=== PATIENT | male | born 1965 | race Caucasian/White ===

== ENCOUNTER 2016-07-18 12:04 | Inpatient (IN) | payer BC ==
[2016-07-18 12:46] VITALS: BMI 26.9
--- NOTE | 2016-07-18 14:40 | HP ---
CIWA Score - CIWA Score Nausea/Vomitin Muscle Tremors: 3 Anxiety: 3 Agitation: 3 Paroxysmal Sweats: 2 Orientation: 0-Oriented Tacttile Disturbances: 2-Mild Itch/Numbness/Burn Auditory Disturbances: 2-Mild Harshness/Frighten Visual Disturbances: 2-Mild Sensitivity Headache: 2-Mild CIWA-Ar Total Score: 22 Admission ROS [facility] - HPI Chief Complaint: for inpatient detox from alcohol Allergies/Adverse Reactions: Allergies Allergy/AdvReac Type Severity Reaction Status Date / Time No Known Allergies Allergy Verified 07/18/16 14:22 History of Present Illness: this 51 years old male with alcohol dependence,withdrawal symptom,last detox 2012 [facility] type 2 dm hypertension nicotine dependence no significant period of sobriety hypothyroidism Exam Limitations: No Limitations - Ebola screening Have you traveled outside of the country in the last 21 days: No Have you had contact with anyone from an Ebola affected area: No Have you been sick,other than usual withdrawal symptoms: No - Review of Systems Constitutional: Loss of Appetite, Malaise, Night Sweats, Changes in sleep, Weakness EENT: reports: Nose Congestion Respiratory: reports: No Symptoms reported Cardiac: reports: Palpitations GI: reports: Nausea, Vomiting, Abdominal cramping : reports: No Symptoms Reported Musculoskeletal: reports: Back Pain, Muscle Pain Integumentary: reports: Dryness Neuro: reports: Tremors Endocrine: reports: No Symptoms Reported Hematology: reports: No Symptoms Reported Psychiatric: reports: No Sypmtoms Reported Other Systems: Reviewed and Negative Patient History - Patient Medical History Hx Anemia: No Hx Asthma: No Hx Chronic Obstructive Pulmonary Disease (COPD): No Hx Cancer: No Hx Cardiac Disorders: No Hx Congestive Heart Failure: No Hx Hypertension: Yes (no medication) Hx Hypercholesterolemia: Yes (on med) Hx Pacemaker: No HX Cerebrovascular Accident: No Hx Seizures: No Hx Dementia: No Hx Diabetes: Yes (on med) Hx Gastrointestinal Disorders: No Hx Liver Disease: No Hx Genitourinary Disorders: No Hx Sexually Transmitted Disorders: No Hx Renal Disease (ESRD): No Hx Thyroid Disease: Yes (hypothyroidism) Hx Human Immunodeficiency Virus (HIV): (never been tested) Hx Hepatitis C: No Hx Depression: Yes (insomnia) Hx Suicide Attempt: No Hx Bipolar Disorder: No Hx Schizophrenia: No Other Medical History: no suicidal,no homicidal - Patient Surgical History Hx Cholecystectomy: Yes (lap cholecystectomy in 2012) Other Surgical History: no suicidal,no homicidal - PPD History Previous Implant?: Yes PPD to be Administered?: No - Smoking Cessation Smoking history: Current every day smoker Have you smoked in the past 12 months: Yes Aproximately how many cigarettes per day: 2 Hx Chewing Tobacco Use: No Initiated information on smoking cessation: Yes 'Breaking Loose' booklet given: 07/18/16 - Substance & Tx. History Hx Alcohol Use: Yes Hx Substance Use: No Substance Use Type: Alcohol Hx Substance Use Treatment: Yes ([facility] in 2012) - Substances Abused Alcohol Route: Oral Frequency: Daily Amount used: 1 pint shanti or vodka/ 15 beers Age of first use: 18 Date of Last Use: 07/17/16 Family Disease History - Family Disease History Family Disease History: Other: Father (alcohol), Mother (alcohol), Brother ( alcohol) Admission Physical Exam [facility] - Vital Signs Vital Signs: Vital Signs - 24 hr 07/18/16 12:44 Temperature 97.6 F Pulse Rate 122 H Respiratory 18 Rate Blood Pressure 127/81 - Physical General Appearance: Yes: Moderate Distress, Tremorous, Irritable, Sweating, Anxious HEENTM: Yes: Normal ENT Inspection, SHANELLE, Pharynx Normal Respiratory: Yes: Lungs Clear, Normal Breath Sounds, No Respiratory Distress Neck: Yes: Within Normal Limits Breast: Yes: Within Normal Limits Cardiology: Yes: Tachycardia Abdominal: Yes: Non Tender, Flat, Soft, Increased Bowel Sounds Genitourinary: Yes: Within Normal Limits Back: Yes: Normal Inspection, Muscle Spasm Musculoskeletal: Yes: Back pain, Joint Stiffness, Muscle Pain Extremities: Yes: Tremors Neurological: Yes: slide maker II-XII NML intact, Fully Oriented, Alert, Motor Strength 5/5 Integumentary: Yes: Dry Lymphatic: Yes: Within Normal Limits - Diagnostic (1) Alcohol dependence with uncomplicated withdrawal Current Visit: Yes Status: Acute (2) DM2 (diabetes mellitus, type 2) Current Visit: Yes Status: Chronic (3) Hypercholesterolemia Current Visit: Yes Status: Chronic (4) Hypothyroidism Current Visit: Yes Status: Chronic (5) Positive PPD Current Visit: Yes Status: Chronic (6) Nicotine dependence Current Visit: Yes Status: Acute (7) Anxiety and depression Current Visit: Yes Status: Acute Cleared for Admission [facility] - Detox or Rehab [facility] Level of Care: Medically Managed Detox Regimen/Protocol: Librium [facility] Breath Alcohol Content Breath Alcohol Content: 0 Urine Drug Screen - Results Drug Screen Negative: Yes
[2016-07-18] MEDS ORDERED: P-EPHED 60MG/TRIPROLIDI 2.5MG TABLET PO PRN (15:01)
[2016-07-18] MEDS ORDERED: chlordiazePOXIDE HCL 25 MG CAPSULE PO PRN (15:01)
[2016-07-18] MEDS ORDERED: MENTHOL/PHENOL 1 EACH UD MM PRN (15:01)
[2016-07-18] MEDS ORDERED: ACETAMINOPHEN 325 MG TABLET (FP) PO PRN (15:01)
[2016-07-18] MEDS ORDERED: MAGNESIUM CITRATE 300 ML BOTTLE PO PRN (15:01)
[2016-07-18] MEDS ORDERED: guaiFENesin/D-METHORPHAN HB 10 ML UNIT-DOSE CUPS PO PRN (15:01)
[2016-07-18] MEDS ORDERED: LOPERAMIDE HCL 2 MG CAPSULE PO PRN (15:01)
[2016-07-18] MEDS ORDERED: chlordiazePOXIDE HCL 25 MG CAPSULE PO ONE (15:01)
[2016-07-18] MEDS ORDERED: MAG HYDROX/AL HYDROX/SIMETH 30 ML UNIT-DOSE CUP PO PRN (15:01)
[2016-07-18] MEDS ORDERED: IBUPROFEN 400 MG TABLET (FP) PO PRN (15:01)
[2016-07-18] MEDS ORDERED: hydrOXYzine PAMOATE 50 MG CAPSULE (FP) PO PRN (15:01)
[2016-07-18] MEDS ORDERED: MAGNESIUM HYDROX 2400MG/30ML ORAL SUSPENSION 30 ML CUP PO PRN (15:01)
[2016-07-18] MEDS: GABAPENTIN 100 MG CAPSULE (FP) PO SCH ×2 (15:51→22:11)
[2016-07-18] MEDS: metFORMIN HCL 500 MG TABLET (FP) PO SCH (17:02)
[2016-07-18] MEDS: chlordiazePOXIDE HCL 25 MG CAPSULE PO SCH ×2 (17:02→22:11)
[2016-07-18] MEDS: INSULIN (NOVOLOG MIX 70/30) 100 UNITS/ML MDV SQ SCH (17:03)
[2016-07-18 17:12] LABS: URINE APPEARANCE CLEAR; URINE BILIRUBIN NEGATIVE (NEGATIVE); URINE BLOOD NEGATIVE (NEGATIVE); URINE COLOR LTYELLOW; URINE GLUCOSE (UA) 3+ (NEGATIVE); URINE KETONE NEGATIVE (NEGATIVE); URINE LEUK ESTERASE NEGATIVE (NEGATIVE); URINE NITRITE NEGATIVE (NEGATIVE); URINE PROTEIN NEGATIVE (NEGATIVE); URINE UROBILINOGEN NEGATIVE E.U./dl (0.2-1.0)
[2016-07-18] MEDS: THIAMINE HCL 100 MG TABLET (FP) PO SCH (22:11)
[2016-07-18] MEDS: ATORVASTATIN CA 40 MG TABLET (FP) PO SCH (22:11)
[2016-07-19] MEDS: GABAPENTIN 100 MG CAPSULE (FP) PO SCH ×3 (05:54→22:34)
[2016-07-19] MEDS: chlordiazePOXIDE HCL 25 MG CAPSULE PO SCH ×4 (05:54→22:34)
[2016-07-19] MEDS: INSULIN (NOVOLOG MIX 70/30) 100 UNITS/ML MDV SQ SCH ×2 (08:00→17:41)
[2016-07-19] MEDS: LEVOTHYROXINE NA 25 MCG TABLET (FP) PO SCH (08:00)
[2016-07-19] MEDS: metFORMIN HCL 500 MG TABLET (FP) PO SCH ×2 (08:00→17:38)
[2016-07-19 09:04] LABS: HIV 1 & 2 AB NEGATIVE; HIV 1 AGp24 NEGATIVE
[2016-07-19] MEDS: FENOFIBRIC ACID 135 MG CAP PO SCH (10:10)
[2016-07-19] MEDS: PRENATAL VITAMINS W/ FOLIC ACID TABLET (FP) PO SCH (10:10)
[2016-07-19] MEDS: ASPIRIN 81 MG CHEWABLE TABLETS PO SCH (10:10)
--- NOTE | 2016-07-19 10:16 | PN ---
S CIWA - CIWA Score Nausea/Vomitin Muscle Tremors: 3 Anxiety: 2 Agitation: 2 Paroxysmal Sweats: 3 Orientation: 0-Oriented Tacttile Disturbances: 2-Mild Itch/Numbness/Burn Auditory Disturbances: 0-None Visual Disturbances: 0-None Headache: 0-None Present CIWA-Ar Total Score: 14 S Progress Note (SOAP) Subjective: interrupted sleep, sweats, leg pains Objective: 07/19/16 10:14 Vital Signs Temperature 97.5 F L 07/19/16 09:50 Pulse Rate 123 H 07/19/16 09:50 Respiratory Rate 16 07/19/16 09:50 Blood Pressure 125/72 07/19/16 09:50 O2 Sat by Pulse Oximetry (%) Laboratory Tests 07/18/16 07/18/16 07/18/16 13:00 14:57 15:00 POC Glucometer 178 Urine Color Ltyellow Urine Appearance Clear Urine pH 5.0 Ur Specific [place] 1.040 H Urine Protein Negative Urine Glucose (UA) 3+ H Urine Ketones Negative Urine Blood Negative Urine Nitrite Negative Urine Bilirubin Negative Urine Urobilinogen Negative Ur Leukocyte Esterase Negative HIV 1&2 Antibody Screen Negative HIV P24 Antigen Negative 07/18/16 07/19/16 16:34 05:56 POC Glucometer 357 399 Urine Color Urine Appearance Urine pH Ur Specific [place] Urine Protein Urine Glucose (UA) Urine Ketones Urine Blood Urine Nitrite Urine Bilirubin Urine Urobilinogen Ur Leukocyte Esterase HIV 1&2 Antibody Screen HIV P24 Antigen pending labs pt aox3 in nad ambulating Assessment: 07/19/16 10:14 withdrawal sx;s dm -uncontrolled 07/19/16 10:15 Plan: cont. detox increase fluids motrin prn f/up labs bgm and coverage
[2016-07-19 11:45] LABS: MCHC 32.9 g/dl (32.0-35.9); MEAN CELL VOLUME 91.3 fl (80-96); MEAN PLT VOLUME 9.7 fl (7.5-11.1); PLATELET COUNT 153 K/MM3 (134-434); RDW 14.4 % (11.9-15.9)
[2016-07-19 11:48] LABS: ALBUMIN 4.3 g/dl (3.4-5.0); ALK PHOS 144 U/L (45-117); ANION GAP 15 (8-16); BILIRUBIN,TOTAL 0.6 mg/dL (0.2-1.0); CALCIUM 9.7 mg/dL (8.5-10.1); CO2 25 mmol/L (21-32); COCKROFT - GAULT 85.97; CREATININE 0.9 mg/dL (0.7-1.3); GLUCOSE,RANDOM 157 mg/dL (74-106); SGOT/AST 37 U/L (15-37); SGPT/ALT 55 U/L (12-78); TOT PROT 7.9 g/dl (6.4-8.2)
--- NOTE | 2016-07-19 12:37 | CONSULT ---
[facility] Psychiatric Consult - Data Date of interview: 07/19/16 Admission source: [facility] Identifying data: First admission to [facility] for this 51 y/o [place]-born male seeking detox treatment for alcohol dependence.Patient is ,a father of two,domiciled,currently unemployed and deprived of any source of income. Substance Abuse History: - Smoking Cessation. Smoking history: Current every day smoker. Have you smoked in the past 12 months: Yes. Aproximately how many cigarettes per day: 2. Hx Chewing Tobacco Use: No. Initiated information on smoking cessation: Yes. 'Breaking Loose' booklet given: 07/18/16. - Substance & Tx. History. Hx Alcohol Use: Yes. Hx Substance Use: No. Substance Use Type : Alcohol. Hx Substance Use Treatment: Yes ([facility] in 2012). - Substances Abused. Alcohol. Route: Oral. Frequency: Daily. Amount used: 1 pint shanti or vodka/ 15 beers. Age of first use: 18. Date of Last Use: 07/17/16. Confirmed by patient. Medical History: Hypothyroidism,diabetes mellitus,hypercholesterolemia and a history of cholecystectomy. Psychiatric History: Patient denies. Physical/Sexual Abuse/Trauma History: Patient denies. Additional Comment: Drug Screen Negative: Yes.Noted. Mental Status Exam - Mental Status Exam Alert and Oriented to: Time, Place, Person Cognitive Function: Good Patient Appearance: Well Groomed (short stature) Mood: Hopeful, Euthymic Affect: Appropriate, Normal Range Patient Behavior: Fatigued, Appropriate, Cooperative Speech Pattern: Clear, Appropriate Voice Loudness: Normal Thought Process: Goal Oriented Thought Disorder: Not Present Hallucinations: Denies Suicidal Ideation: Denies Homicidal Ideation: Denies Insight/Judgement: Fair Sleep: Fair Appetite: Good Muscle strength/Tone: Normal Gait/Station: Normal Psychiatric Findings - Problem List ([place] 1, 2,3) (1) Alcohol dependence with uncomplicated withdrawal Current Visit: Yes Status: Acute (2) Nicotine dependence Current Visit: Yes Status: Acute (3) DM2 (diabetes mellitus, type 2) Current Visit: Yes Status: Chronic (4) Hypercholesterolemia Current Visit: Yes Status: Chronic (5) Hypothyroidism Current Visit: Yes Status: Chronic (6) Positive PPD Current Visit: Yes Status: Chronic - Initial Treatment Plan Initial Treatment Plan: Psychoeducation.Detoxification.Observation.
--- NOTE | 2016-07-19 14:09 | EKG ---
Test Reason : Blood Pressure : / mmHG Vent. Rate : 119 BPM Atrial Rate : 119 BPM P-R Int : 132 ms QRS Dur : 074 ms QT Int : 314 ms P-R-T Axes : 040 115 006 degrees QTc Int : 441 ms SINUS TACHYCARDIA LEFT POSTERIOR FASCICULAR BLOCK POOR R WAVE PROGRESSION ABNORMAL ECG NO PREVIOUS ECGS AVAILABLE Confirmed by CONNOR GODFREY, LOGAN ([id number]) on 07/19/2016 2:09:05 PM Referred By: Confirmed By:LOGAN RYAN MD
[2016-07-19] MEDS ORDERED: INSULIN (NOVOLOG) ASPART 100 UNITS/ML 10ML VIAL ONE (17:36)
[2016-07-19] MEDS: INSULIN (NOVOLOG) ASPART 100 UNITS/ML 10ML VIAL SQ SCH (17:42)
[2016-07-19] MEDS: ATORVASTATIN CA 40 MG TABLET (FP) PO SCH (22:34)
[2016-07-19] MEDS: THIAMINE HCL 100 MG TABLET (FP) PO SCH (22:34)
[2016-07-19] MEDS: diphenhydrAMINE HCL 50 MG CAPSULE PO PRN (22:34)
[2016-07-20] MEDS: GABAPENTIN 100 MG CAPSULE (FP) PO SCH ×3 (05:53→22:53)
[2016-07-20] MEDS: chlordiazePOXIDE HCL 25 MG CAPSULE PO SCH ×2 (05:53→10:19)
[2016-07-20] MEDS ORDERED: INSULIN (NOVOLOG) ASPART 100 UNITS/ML 10ML VIAL ONE ×3 (07:01→22:03)
[2016-07-20] MEDS: LEVOTHYROXINE NA 25 MCG TABLET (FP) PO SCH (07:46)
[2016-07-20] MEDS: sitaGLIPtin PHOSPHATE 50 MG TABLET PO SCH (07:48)
[2016-07-20] MEDS: INSULIN (NOVOLOG MIX 70/30) 100 UNITS/ML MDV SQ SCH ×2 (07:49→17:30)
[2016-07-20] MEDS: INSULIN (NOVOLOG) ASPART 100 UNITS/ML 10ML VIAL SQ SCH ×3 (07:50→22:53)
--- NOTE | 2016-07-20 10:12 | PN ---
S CIWA - CIWA Score Nausea/Vomitin Muscle Tremors: 3 Anxiety: 3 Agitation: 2 Paroxysmal Sweats: 3 Orientation: 0-Oriented Tacttile Disturbances: 1-Very Mild Itch/Numbness Auditory Disturbances: 0-None Visual Disturbances: 0-None Headache: 0-None Present CIWA-Ar Total Score: 14 S Progress Note (SOAP) Subjective: feeling better but still has shakes , sweats , leg pains Objective: 07/20/16 10:03 Vital Signs Temperature 98.6 F 07/20/16 09:58 Pulse Rate 114 H 07/20/16 09:58 Respiratory Rate 18 07/20/16 09:58 Blood Pressure 123/64 07/20/16 09:58 O2 Sat by Pulse Oximetry (%) Laboratory Tests 07/18/16 07/18/16 07/18/16 13:00 14:57 15:00 WBC RBC Hgb Hct MCV MCHC RDW Plt Count MPV Sodium Potassium Chloride Carbon Dioxide Anion Gap BUN Creatinine Creat Clearance w eGFR POC Glucometer 178 Random Glucose Calcium Total Bilirubin AST ALT Alkaline Phosphatase Total Protein Albumin Urine Color Ltyellow Urine Appearance Clear Urine pH 5.0 Ur Specific [place] 1.040 H Urine Protein Negative Urine Glucose (UA) 3+ H Urine Ketones Negative Urine Blood Negative Urine Nitrite Negative Urine Bilirubin Negative Urine Urobilinogen Negative Ur Leukocyte Esterase Negative RPR Titer HIV 1&2 Antibody Screen Negative HIV P24 Antigen Negative 07/18/16 07/19/16 07/19/16 16:34 05:56 06:40 WBC 10.0 RBC 5.25 Hgb 15.8 Hct 48.0 MCV 91.3 MCHC 32.9 RDW 14.4 Plt Count 153 MPV 9.7 Sodium Potassium Chloride Carbon Dioxide Anion Gap BUN Creatinine Creat Clearance w eGFR POC Glucometer 357 399 Random Glucose Calcium Total Bilirubin AST ALT Alkaline Phosphatase Total Protein Albumin Urine Color Urine Appearance Urine pH Ur Specific [place] Urine Protein Urine Glucose (UA) Urine Ketones Urine Blood Urine Nitrite Urine Bilirubin Urine Urobilinogen Ur Leukocyte Esterase RPR Titer HIV 1&2 Antibody Screen HIV P24 Antigen 07/19/16 07/19/16 07/19/16 06:40 06:40 16:30 WBC RBC Hgb Hct MCV MCHC RDW Plt Count MPV Sodium 139 Potassium 3.7 Chloride 99 Carbon Dioxide 25 Anion Gap 15 BUN 23 H Creatinine 0.9 Creat Clearance w eGFR > 60 POC Glucometer > 600 Random Glucose 157 H Calcium 9.7 Total Bilirubin 0.6 AST 37 ALT 55 Alkaline Phosphatase 144 H Total Protein 7.9 Albumin 4.3 Urine Color Urine Appearance Urine pH Ur Specific [place] Urine Protein Urine Glucose (UA) Urine Ketones Urine Blood Urine Nitrite Urine Bilirubin Urine Urobilinogen Ur Leukocyte Esterase RPR Titer Nonreactive HIV 1&2 Antibody Screen HIV P24 Antigen 07/19/16 07/20/16 22:23 05:58 WBC RBC Hgb Hct MCV MCHC RDW Plt Count MPV Sodium Potassium Chloride Carbon Dioxide Anion Gap BUN Creatinine Creat Clearance w eGFR POC Glucometer 373 278 Random Glucose Calcium Total Bilirubin AST ALT Alkaline Phosphatase Total Protein Albumin Urine Color Urine Appearance Urine pH Ur Specific [place] Urine Protein Urine Glucose (UA) Urine Ketones Urine Blood Urine Nitrite Urine Bilirubin Urine Urobilinogen Ur Leukocyte Esterase RPR Titer HIV 1&2 Antibody Screen HIV P24 Antigen pt aox3 in nad ambulating bgm 278 Assessment: 07/20/16 10:04 withdrawal sx's dm Plan: cont. detox increase fluids analgesic balm bid
[2016-07-20] MEDS: ASPIRIN 81 MG CHEWABLE TABLETS PO SCH (10:19)
[2016-07-20] MEDS: FENOFIBRIC ACID 135 MG CAP PO SCH (10:19)
[2016-07-20] MEDS: PRENATAL VITAMINS W/ FOLIC ACID TABLET (FP) PO SCH (10:20)
[2016-07-20] MEDS: METHYL SALICYLATE/MENTHOL OINT 30 GM TUBE TP SCH ×2 (13:56→22:54)
[2016-07-20] MEDS: chlordiazePOXIDE 5 MG CAPSULE PO SCH ×2 (17:27→22:53)
[2016-07-20] MEDS: diphenhydrAMINE HCL 50 MG CAPSULE PO PRN (22:53)
[2016-07-20] MEDS: THIAMINE HCL 100 MG TABLET (FP) PO SCH (22:53)
[2016-07-20] MEDS: ATORVASTATIN CA 40 MG TABLET (FP) PO SCH (22:53)
[2016-07-21] MEDS: chlordiazePOXIDE 5 MG CAPSULE PO SCH ×2 (05:09→10:25)
[2016-07-21] MEDS: GABAPENTIN 100 MG CAPSULE (FP) PO SCH ×3 (05:09→22:24)
[2016-07-21] MEDS ORDERED: INSULIN (NOVOLOG) ASPART 100 UNITS/ML 10ML VIAL ONE ×5 (07:43→20:49)
[2016-07-21] MEDS: LEVOTHYROXINE NA 25 MCG TABLET (FP) PO SCH (07:53)
[2016-07-21] MEDS: sitaGLIPtin PHOSPHATE 50 MG TABLET PO SCH (07:53)
[2016-07-21] MEDS: INSULIN (NOVOLOG MIX 70/30) 100 UNITS/ML MDV SQ SCH ×2 (07:53→17:28)
[2016-07-21] MEDS: INSULIN (NOVOLOG) ASPART 100 UNITS/ML 10ML VIAL SQ SCH ×4 (07:54→22:54)
[2016-07-21] MEDS: PRENATAL VITAMINS W/ FOLIC ACID TABLET (FP) PO SCH (10:25)
[2016-07-21] MEDS: ASPIRIN 81 MG CHEWABLE TABLETS PO SCH (10:25)
[2016-07-21] MEDS: METHYL SALICYLATE/MENTHOL OINT 30 GM TUBE TP SCH ×2 (10:25→22:53)
[2016-07-21] MEDS: FENOFIBRIC ACID 135 MG CAP PO SCH (10:26)
--- NOTE | 2016-07-21 10:26 | PN ---
[facility] Progress Note (SOAP) Subjective: feeling better but having problems with dm diet Objective: 07/21/16 10:24 Vital Signs Temperature 98.1 F 07/21/16 09:58 Pulse Rate 99 H 07/21/16 09:58 Respiratory Rate 18 07/21/16 09:58 Blood Pressure 111/77 07/21/16 09:58 O2 Sat by Pulse Oximetry (%) Laboratory Tests 07/18/16 07/18/16 07/18/16 13:00 14:57 15:00 WBC RBC Hgb Hct MCV MCHC RDW Plt Count MPV Sodium Potassium Chloride Carbon Dioxide Anion Gap BUN Creatinine Creat Clearance w eGFR POC Glucometer 178 Random Glucose Calcium Total Bilirubin AST ALT Alkaline Phosphatase Total Protein Albumin Urine Color Ltyellow Urine Appearance Clear Urine pH 5.0 Ur Specific [place] 1.040 H Urine Protein Negative Urine Glucose (UA) 3+ H Urine Ketones Negative Urine Blood Negative Urine Nitrite Negative Urine Bilirubin Negative Urine Urobilinogen Negative Ur Leukocyte Esterase Negative RPR Titer HIV 1&2 Antibody Screen Negative HIV P24 Antigen Negative 07/18/16 07/19/16 07/19/16 16:34 05:56 06:40 WBC 10.0 RBC 5.25 Hgb 15.8 Hct 48.0 MCV 91.3 MCHC 32.9 RDW 14.4 Plt Count 153 MPV 9.7 Sodium Potassium Chloride Carbon Dioxide Anion Gap BUN Creatinine Creat Clearance w eGFR POC Glucometer 357 399 Random Glucose Calcium Total Bilirubin AST ALT Alkaline Phosphatase Total Protein Albumin Urine Color Urine Appearance Urine pH Ur Specific [place] Urine Protein Urine Glucose (UA) Urine Ketones Urine Blood Urine Nitrite Urine Bilirubin Urine Urobilinogen Ur Leukocyte Esterase RPR Titer HIV 1&2 Antibody Screen HIV P24 Antigen 07/19/16 07/19/16 07/19/16 06:40 06:40 16:30 WBC RBC Hgb Hct MCV MCHC RDW Plt Count MPV Sodium 139 Potassium 3.7 Chloride 99 Carbon Dioxide 25 Anion Gap 15 BUN 23 H Creatinine 0.9 Creat Clearance w eGFR > 60 POC Glucometer > 600 Random Glucose 157 H Calcium 9.7 Total Bilirubin 0.6 AST 37 ALT 55 Alkaline Phosphatase 144 H Total Protein 7.9 Albumin 4.3 Urine Color Urine Appearance Urine pH Ur Specific [place] Urine Protein Urine Glucose (UA) Urine Ketones Urine Blood Urine Nitrite Urine Bilirubin Urine Urobilinogen Ur Leukocyte Esterase RPR Titer Nonreactive HIV 1&2 Antibody Screen HIV P24 Antigen 07/19/16 07/20/16 07/20/16 22:23 05:58 16:20 WBC RBC Hgb Hct MCV MCHC RDW Plt Count MPV Sodium Potassium Chloride Carbon Dioxide Anion Gap BUN Creatinine Creat Clearance w eGFR POC Glucometer 373 278 556 Random Glucose Calcium Total Bilirubin AST ALT Alkaline Phosphatase Total Protein Albumin Urine Color Urine Appearance Urine pH Ur Specific [place] Urine Protein Urine Glucose (UA) Urine Ketones Urine Blood Urine Nitrite Urine Bilirubin Urine Urobilinogen Ur Leukocyte Esterase RPR Titer HIV 1&2 Antibody Screen HIV P24 Antigen 07/20/16 07/21/16 22:01 05:15 WBC RBC Hgb Hct MCV MCHC RDW Plt Count MPV Sodium Potassium Chloride Carbon Dioxide Anion Gap BUN Creatinine Creat Clearance w eGFR POC Glucometer 438 269 Random Glucose Calcium Total Bilirubin AST ALT Alkaline Phosphatase Total Protein Albumin Urine Color Urine Appearance Urine pH Ur Specific [place] Urine Protein Urine Glucose (UA) Urine Ketones Urine Blood Urine Nitrite Urine Bilirubin Urine Urobilinogen Ur Leukocyte Esterase RPR Titer HIV 1&2 Antibody Screen HIV P24 Antigen pt aox3 in nad ambulating , w/o tremor Assessment: 07/21/16 10:25 withdrawal sx's dm Plan: cont. detox increase fluids diabetic diet d/c in am
[2016-07-21] MEDS: chlordiazePOXIDE HCL 10 MG CAPSULE PO SCH ×2 (18:13→22:24)
[2016-07-21] MEDS: ATORVASTATIN CA 40 MG TABLET (FP) PO SCH (22:24)
[2016-07-21] MEDS: THIAMINE HCL 100 MG TABLET (FP) PO SCH (22:25)
[2016-07-21] MEDS: diphenhydrAMINE HCL 50 MG CAPSULE PO PRN (22:25)
[2016-07-22] MEDS: chlordiazePOXIDE HCL 10 MG CAPSULE PO SCH ×2 (05:21→10:06)
[2016-07-22] MEDS: GABAPENTIN 100 MG CAPSULE (FP) PO SCH (05:22)
[2016-07-22] MEDS ORDERED: INSULIN (NOVOLOG) ASPART 100 UNITS/ML 10ML VIAL ONE ×2 (05:56→11:18)
[2016-07-22] MEDS: INSULIN (NOVOLOG MIX 70/30) 100 UNITS/ML MDV SQ SCH (07:10)
[2016-07-22] MEDS: sitaGLIPtin PHOSPHATE 50 MG TABLET PO SCH (07:10)
[2016-07-22] MEDS: LEVOTHYROXINE NA 25 MCG TABLET (FP) PO SCH (07:10)
[2016-07-22] MEDS: INSULIN (NOVOLOG) ASPART 100 UNITS/ML 10ML VIAL SQ SCH ×2 (07:11→11:19)
[2016-07-22] MEDS: PRENATAL VITAMINS W/ FOLIC ACID TABLET (FP) PO SCH (10:06)
[2016-07-22] MEDS: ASPIRIN 81 MG CHEWABLE TABLETS PO SCH (10:06)
[2016-07-22] MEDS: FENOFIBRIC ACID 135 MG CAP PO SCH (10:07)
[2016-07-22] MEDS: METHYL SALICYLATE/MENTHOL OINT 30 GM TUBE TP SCH (10:07)
[2016-07-22 11:16] VITALS: BP 148/81; PULSE 96; TEMP 97.9
--- NOTE | 2016-07-22 12:24 | DS ---
[facility] Detox Discharge Summary Admission Date: 07/18/16 Discharge Date: 07/22/16 - History Present History: Alcohol Dependence Additional Comments: ADVISED PATIENT TO FOLLOW-UP WITH [facility] / REHAB MEDICAL PROVIDER AFTER DISCHARGE FROM DETOX FOR ABNORMAL ADMISSION LAB VALUES. Pertinent Past History: HTN, DM, Hypercholesterolemia, Hypothyroidism, Depression. - Physical Exam Results Vital Signs: Vital Signs Temperature 97.9 F 07/22/16 11:15 Pulse Rate 96 H 07/22/16 11:15 Respiratory Rate 18 07/22/16 11:15 Blood Pressure 148/81 07/22/16 11:15 O2 Sat by Pulse Oximetry (%) Pertinent Admission Physical Exam Findings: WITHDRAWAL SYMPTOMS. Laboratory Last Values WBC 10.0 K/mm3 (4.0-10.0) 07/19/16 06:40 RBC 5.25 M/mm3 (4.00-5.60) 07/19/16 06:40 Hgb 15.8 GM/dL (11.7-16.9) 07/19/16 06:40 Hct 48.0 % (35.4-49) 07/19/16 06:40 MCV 91.3 fl (80-96) 07/19/16 06:40 MCHC 32.9 g/dl (32.0-35.9) 07/19/16 06:40 RDW 14.4 % (11.9-15.9) 07/19/16 06:40 Plt Count 153 K/MM3 (134-434) 07/19/16 06:40 MPV 9.7 fl (7.5-11.1) 07/19/16 06:40 Sodium 139 mmol/L (136-145) 07/19/16 06:40 Potassium 3.7 mmol/L (3.5-5.1) 07/19/16 06:40 Chloride 99 mmol/L (98-107) 07/19/16 06:40 Carbon Dioxide 25 mmol/L (21-32) 07/19/16 06:40 Anion Gap 15 (8-16) 07/19/16 06:40 BUN 23 mg/dL (7-18) H 07/19/16 06:40 Creatinine 0.9 mg/dL (0.7-1.3) 07/19/16 06:40 Creat Clearance w eGFR > 60 (>60) 07/19/16 06:40 POC Glucometer 469 UNITS (()) 07/22/16 11:13 Random Glucose 157 mg/dL (74-106) H 07/19/16 06:40 Calcium 9.7 mg/dL (8.5-10.1) 07/19/16 06:40 Total Bilirubin 0.6 mg/dL (0.2-1.0) 07/19/16 06:40 AST 37 U/L (15-37) 07/19/16 06:40 ALT 55 U/L (12-78) 07/19/16 06:40 Alkaline Phosphatase 144 U/L (45-117) H 07/19/16 06:40 Total Protein 7.9 g/dl (6.4-8.2) 07/19/16 06:40 Albumin 4.3 g/dl (3.4-5.0) 07/19/16 06:40 Urine Color Ltyellow 07/18/16 15:00 Urine Appearance Clear 07/18/16 15:00 Urine pH 5.0 (5.0-8.0) 07/18/16 15:00 Ur Specific [place] 1.040 (1.001-1.035) H 07/18/16 15:00 Urine Protein Negative (NEGATIVE) 07/18/16 15:00 Urine Glucose (UA) 3+ (NEGATIVE) H 07/18/16 15:00 Urine Ketones Negative (NEGATIVE) 07/18/16 15:00 Urine Blood Negative (NEGATIVE) 07/18/16 15:00 Urine Nitrite Negative (NEGATIVE) 07/18/16 15:00 Urine Bilirubin Negative (NEGATIVE) 07/18/16 15:00 Urine Urobilinogen Negative E.U./dl (0.2-1.0) 07/18/16 15:00 Ur Leukocyte Esterase Negative (NEGATIVE) 07/18/16 15:00 RPR Titer Nonreactive (NONREACTIVE) 07/19/16 06:40 HIV 1&2 Antibody Screen Negative 07/18/16 13:00 HIV P24 Antigen Negative 07/18/16 13:00 LABS NOTED. - Treatment Hospital Course: Detox Protocol Followed, Detoxed Safely, Responded well, Discharged Condition Good, Rehab Referral Accepted Patient has Accepted a Rehab Referral to: YES - [facility]. - Medication Discharge Medications: Ambulatory Orders Aspirin [ASA -] 81 mg PO DAILY 07/18/16 Atorvastatin Ca [Lipitor] 40 mg PO HS 07/18/16 Empagliflozin [Jardiance] 25 mg PO BID 07/18/16 Fenofibrate [Lofibra] 160 mg PO HS 07/18/16 Gabapentin [Neurontin -] 100 mg PO Q8H 07/18/16 Insulin Lispro Protamin/Lispro [Humalog Mix 75-25 Vial] 15 unit SQ BIDAC Levothyroxine [Synthroid -] 50 mcg PO DAILY 07/18/16 Metformin HCl [Glucophage -] 500 mg PO BID 07/18/16 - Diagnosis (1) Alcohol dependence with uncomplicated withdrawal Status: Acute (2) Anxiety and depression Status: Chronic (3) Nicotine dependence Status: Chronic Qualifiers: Nicotine product type: cigarettes Substance use status: uncomplicated Qualified Code(s): F17.210 - Nicotine dependence, cigarettes, uncomplicated (4) DM2 (diabetes mellitus, type 2) Status: Chronic Qualifiers: Diabetes mellitus complication status: without complication Diabetes mellitus detention insulin use: with detention use Qualified Code(s): E11.9 - Type 2 diabetes mellitus without complications; Z79.4 - senior care ( current) use of insulin (5) Hypercholesterolemia Status: Chronic (6) Hypothyroidism Status: Chronic Qualifiers: Hypothyroidism type: unspecified Qualified Code(s): E03.9 - Hypothyroidism, unspecified (7) Positive PPD Status: Chronic - AMA Did Patient Leave Against Medical Advice: No
== END 2016-07-22 12:02 | disposition other institution (70) | DRG 775 ==
LOC: YASAS 12:04 → Y6N 15:14
PROVIDERS: ADMIT Internal Medicine Addiction Medicine; ATTEND Internal Medicine Addiction Medicine
PROC: HZ2ZZZZ Detoxification Services for Substance Abuse Treatment (ICD-10-PCS; principal; 2016-07-22)
DX: F10.230 Alcohol dependence with withdrawal, uncomplicated (principal); F17.210 Nicotine dependence, cigarettes, uncomplicated; F41.8 Other specified anxiety disorders; E11.9 Type 2 diabetes mellitus without complications; Z79.4 Long term (current) use of insulin; E03.9 Hypothyroidism, unspecified; R76.11 Nonspecific reaction to tuberculin skin test without active tuberculosis
CPT/HCPCS: 36415; 71020-TC; 80053; 81003; 85027; 86593; 87389; 93005; 93010

== ENCOUNTER 2016-07-22 12:11 | Inpatient (IN) | payer BC ==
--- NOTE | 2016-07-22 13:28 | HP ---
Psychiatrist Admission - Data Date of interview: 07/22/16 Admission source: [facility]N Identifying data: This is the first [facility] admission for this 51 years old [place]-born male, father of 2 daughters, unemployed supported by savings, domiciled Medical History: Significant for Hypothyroidism, type 2 diabetes mellitus, Hypertension, hypercholesterolemia and a history of laparoscopic cholecystectomy in 2012 Psychiatric History: Denies history of previous psychiatric treatment Physical/Sexual Abuse/Trauma History: Denies history of emotional, physical or sexual abuse as well as DV relationship Additional Comment: Reports one previous misdemeanor arrest for trespassing( jumping the turnstile). Denies being on probation at present Allergies/Adverse Reactions: Allergies Allergy/AdvReac Type Severity Reaction Status Date / Time No Known Allergies Allergy Verified 07/18/16 14:22 Date of last physical exam: 07/18/16 Concur with the findings of this exam: Yes - Substance Abuse/Tx History Hx Alcohol Use: Yes Hx Substance Use: No Substance Use Type: Alcohol (Started drinking alcohol at age 18, consumes one pint of vodka or shanti daily. Last drink on 07/17/16) Hx Substance Use Treatment: Yes (one previous inpt detox @ [facility]. First inpt rehab) - Admission Criteria Previous failed treatment: No Poor recovery environment: Yes Comorbidities: Yes Lacks judgement: Yes Mental Status Exam - Mental Status Exam Alert and Oriented to: Time, Place, Person Cognitive Function: Fair Patient Appearance: Well Groomed Mood: Hopeful, Euthymic Patient Behavior: Cooperative Speech Pattern: Clear Voice Loudness: Normal Thought Process: Intact Thought Disorder: Not Present Hallucinations: Denies Suicidal Ideation: Denies Homicidal Ideation: Denies Insight/Judgement: Fair Sleep: Poorly Appetite: Good Muscle strength/Tone: Normal Gait/Station: Normal Psychiatric Findings - Problem List ([place] 1, 2,3) (1) Alcohol dependence with uncomplicated withdrawal Current Visit: No Status: Acute (2) Nicotine dependence Current Visit: No Status: Chronic Qualifiers: Nicotine product type: cigarettes Substance use status: uncomplicated Qualified Code(s): F17.210 - Nicotine dependence, cigarettes, uncomplicated (3) DM2 (diabetes mellitus, type 2) Current Visit: No Status: Chronic Qualifiers: Diabetes mellitus complication status: without complication Diabetes mellitus fci insulin use: with fci use Qualified Code(s): E11.9 - Type 2 diabetes mellitus without complications (4) Hypercholesterolemia Current Visit: No Status: Chronic (5) Hypothyroidism Current Visit: No Status: Chronic Qualifiers: Hypothyroidism type: unspecified Qualified Code(s): E03.9 - Hypothyroidism, unspecified (6) Positive PPD Current Visit: No Status: Chronic - Initial Treatment Plan Initial Treatment Plan: Monitor progress
[2016-07-22] MEDS ORDERED: P-EPHED 60MG/TRIPROLIDI 2.5MG TABLET PO PRN (15:11)
[2016-07-22] MEDS ORDERED: IBUPROFEN 400 MG TABLET (FP) PO PRN (15:11)
[2016-07-22] MEDS ORDERED: LOPERAMIDE HCL 2 MG CAPSULE PO PRN (15:11)
[2016-07-22] MEDS ORDERED: MENTHOL/PHENOL 1 EACH UD MM PRN (15:11)
[2016-07-22] MEDS ORDERED: hydrOXYzine PAMOATE 50 MG CAPSULE (FP) PO PRN (15:11)
[2016-07-22] MEDS ORDERED: ACETAMINOPHEN 325 MG TABLET (FP) PO PRN (15:11)
[2016-07-22] MEDS ORDERED: MAGNESIUM HYDROX 2400MG/30ML ORAL SUSPENSION 30 ML CUP PO PRN (15:11)
[2016-07-22] MEDS ORDERED: guaiFENesin/D-METHORPHAN HB 10 ML UNIT-DOSE CUPS PO PRN (15:11)
[2016-07-22] MEDS ORDERED: MAG HYDROX/AL HYDROX/SIMETH 30 ML UNIT-DOSE CUP PO PRN (15:11)
[2016-07-22] MEDS ORDERED: MAGNESIUM CITRATE 300 ML BOTTLE PO PRN (15:11)
--- NOTE | 2016-07-22 16:08 | HP ---
[facility]FRE[facility] Rehab Assess/Revision - Admission History Admitted to Rehab from: [facility] Date of Admission to Rehab: 07/22/16 - Vital signs Vital Signs: Vital Signs Period Temp Pulse Resp BP Sys/Goodman Pulse Ox Last 24 Hr 97.5 F 88 101/70 - Findings Detox History & Physical reviewed: Yes Concur with findings: Yes Comments/Additional Findings: for rehab as protocol
[2016-07-22] MEDS: metFORMIN HCL 500 MG TABLET (FP) PO SCH (16:39)
[2016-07-22] MEDS: INSULIN (NOVOLOG MIX 70/30) 100 UNITS/ML MDV SQ SCH (16:40)
[2016-07-22] MEDS ORDERED: PT OWN MED DRAWER 7, Y5N ONE (17:03)
[2016-07-22] MEDS: THIAMINE HCL 100 MG TABLET (FP) PO SCH (21:13)
[2016-07-22] MEDS: ATORVASTATIN CA 40 MG TABLET (FP) PO SCH (21:14)
[2016-07-22] MEDS: diphenhydrAMINE HCL 50 MG CAPSULE PO PRN (21:14)
[2016-07-22] MEDS ORDERED: PATIENT'S OWN MEDICATION (NON-FORMULARY) (Fenofibrate [Lofibra] 160 MG) PO SCH (22:00)
[2016-07-23] MEDS: INSULIN (NOVOLOG MIX 70/30) 100 UNITS/ML MDV SQ SCH ×2 (07:06→16:40)
[2016-07-23] MEDS: LEVOTHYROXINE NA 25 MCG TABLET (FP) PO SCH (07:07)
[2016-07-23] MEDS: metFORMIN HCL 500 MG TABLET (FP) PO SCH ×2 (07:07→16:37)
[2016-07-23] MEDS ORDERED: PT OWN MED DRAWER 7, Y5N ONE (08:48)
[2016-07-23] MEDS: PRENATAL VITAMINS W/ FOLIC ACID TABLET (FP) PO SCH (10:36)
[2016-07-23] MEDS: ASPIRIN 81 MG CHEWABLE TABLETS PO SCH (10:36)
[2016-07-23] MEDS: FENOFIBRIC ACID 135 MG CAP PO SCH (10:38)
[2016-07-23] MEDS: THIAMINE HCL 100 MG TABLET (FP) PO SCH (21:19)
[2016-07-23] MEDS: ATORVASTATIN CA 40 MG TABLET (FP) PO SCH (21:19)
[2016-07-23] MEDS: diphenhydrAMINE HCL 50 MG CAPSULE PO PRN (21:20)
[2016-07-24] MEDS: LEVOTHYROXINE NA 25 MCG TABLET (FP) PO SCH (06:25)
[2016-07-24] MEDS: metFORMIN HCL 500 MG TABLET (FP) PO SCH ×2 (07:17→16:51)
[2016-07-24] MEDS: INSULIN (NOVOLOG MIX 70/30) 100 UNITS/ML MDV SQ SCH ×2 (07:17→16:48)
[2016-07-24] MEDS ORDERED: PT OWN MED DRAWER 7, Y5N ONE (08:37)
[2016-07-24] MEDS: PRENATAL VITAMINS W/ FOLIC ACID TABLET (FP) PO SCH (09:52)
[2016-07-24] MEDS: ASPIRIN 81 MG CHEWABLE TABLETS PO SCH (09:52)
[2016-07-24] MEDS: FENOFIBRIC ACID 135 MG CAP PO SCH (09:52)
[2016-07-24] MEDS ORDERED: INSULIN (NOVOLOG) ASPART 100 UNITS/ML 10ML VIAL SQ ONE (18:23)
--- NOTE | 2016-07-24 18:27 | PN ---
S Progress Note Note: bgm high to give novolog 12 unit now,bg achs with novolog coverage,monitoring, cmp in am
[2016-07-24] MEDS ORDERED: INSULIN (NOVOLOG) ASPART 100 UNITS/ML 10ML VIAL ONE (22:00)
[2016-07-24] MEDS: INSULIN SLIDING SCALE (NOVOLOG) 1 VIAL SQ SCH (22:00)
[2016-07-24] MEDS: ATORVASTATIN CA 40 MG TABLET (FP) PO SCH (22:01)
[2016-07-24] MEDS: THIAMINE HCL 100 MG TABLET (FP) PO SCH (22:01)
[2016-07-24] MEDS: diphenhydrAMINE HCL 50 MG CAPSULE PO PRN (22:02)
[2016-07-25] MEDS: metFORMIN HCL 500 MG TABLET (FP) PO SCH ×2 (06:28→16:41)
[2016-07-25] MEDS: LEVOTHYROXINE NA 25 MCG TABLET (FP) PO SCH (06:28)
[2016-07-25] MEDS: INSULIN (NOVOLOG MIX 70/30) 100 UNITS/ML MDV SQ SCH ×2 (06:32→16:40)
[2016-07-25] MEDS: INSULIN SLIDING SCALE (NOVOLOG) 1 VIAL SQ SCH ×4 (06:32→21:25)
[2016-07-25] MEDS ORDERED: INSULIN (NOVOLOG) ASPART 100 UNITS/ML 10ML VIAL ONE ×4 (06:51→22:14)
[2016-07-25] MEDS: PRENATAL VITAMINS W/ FOLIC ACID TABLET (FP) PO SCH (10:01)
[2016-07-25] MEDS: ASPIRIN 81 MG CHEWABLE TABLETS PO SCH (10:01)
[2016-07-25] MEDS: FENOFIBRIC ACID 135 MG CAP PO SCH (10:05)
[2016-07-25] MEDS ORDERED: PT OWN MED DRAWER 7, Y5N ONE (10:05)
[2016-07-25 10:21] LABS: ANION GAP 9 (8-16); BILIRUBIN,TOTAL 0.6 mg/dL (0.2-1.0); CALCIUM 8.7 mg/dL (8.5-10.1); CO2 26 mmol/L (21-32); COCKROFT - GAULT 85.97; CREATININE 0.9 mg/dL (0.7-1.3); SGOT/AST 17 U/L (15-37); SGPT/ALT 41 U/L (12-78)
[2016-07-25 10:22] LABS: ALK PHOS 185 U/L (45-117)
[2016-07-25 11:03] LABS: GLUCOSE,RANDOM 397 mg/dL (74-106)
[2016-07-25 11:15] LABS: HIV 1 & 2 AB NEGATIVE; HIV 1 AGp24 NEGATIVE
[2016-07-25] MEDS: ATORVASTATIN CA 40 MG TABLET (FP) PO SCH (21:27)
[2016-07-25] MEDS: THIAMINE HCL 100 MG TABLET (FP) PO SCH (21:27)
[2016-07-26] MEDS: LEVOTHYROXINE NA 25 MCG TABLET (FP) PO SCH (06:15)
[2016-07-26 06:46] VITALS: BP 108/76; PULSE 92; TEMP 97.9
[2016-07-26] MEDS: metFORMIN HCL 500 MG TABLET (FP) PO SCH (07:29)
[2016-07-26] MEDS: INSULIN (NOVOLOG MIX 70/30) 100 UNITS/ML MDV SQ SCH (07:30)
[2016-07-26] MEDS: INSULIN SLIDING SCALE (NOVOLOG) 1 VIAL SQ SCH (07:31)
[2016-07-26] MEDS: FENOFIBRIC ACID 135 MG CAP PO SCH (09:31)
[2016-07-26] MEDS: PRENATAL VITAMINS W/ FOLIC ACID TABLET (FP) PO SCH (09:31)
[2016-07-26] MEDS: ASPIRIN 81 MG CHEWABLE TABLETS PO SCH (09:32)
[2016-07-26] MEDS ORDERED: PT OWN MED DRAWER 7, Y5N ONE (12:19)
== END 2016-07-26 13:00 | disposition left against medical advice (07) | DRG 770 ==
LOC: YASAS 12:11 → Y3W 12:12
PROVIDERS: ADMIT Psychiatry & Neurology Psychiatry; ATTEND Psychiatry & Neurology Psychiatry
PROC: HZ42ZZZ Group Counseling for Substance Abuse Treatment, Cognitive-Behavioral (ICD-10-PCS; principal; 2016-07-22)
DX: F10.20 Alcohol dependence, uncomplicated (principal); F17.210 Nicotine dependence, cigarettes, uncomplicated; E11.9 Type 2 diabetes mellitus without complications; E78.00 Pure hypercholesterolemia, unspecified; E03.9 Hypothyroidism, unspecified; R76.11 Nonspecific reaction to tuberculin skin test without active tuberculosis
CPT/HCPCS: 36415; 80053; 87389